=== PATIENT | female | born 1960 | race Two or more races ===

== ENCOUNTER 2019-05-05 08:31 | Emergency (ER) | payer MEDICAID ==
[~2019-05-05] VITALS: Ht 139.7 cm; Wt 59.0 kg
[2019-05-05 08:49] VITALS: BP 124/85
[2019-05-05] MEDS ORDERED: EPINEPHrine HCL 1 MG/1 ML AMP SC ONE (09:30)
[2019-05-05] MEDS ORDERED: diphenhdrAMINE HCL 25 MG CAP PO ONE (09:30)
[2019-05-05] MEDS ORDERED: methylPREDNISolone SOD SUCC 125 MG/2 ML VL IM ONE (09:30)
== END 2019-05-05 10:17 | disposition home or self-care (01) ==
LOC: ER 08:31
DX: T78.40XA Allergy, unspecified, initial encounter (principal); X58.XXXA Exposure to other specified factors, initial encounter
CPT/HCPCS: 96372; 99284; J0171; J2930

== ENCOUNTER → 2020-01-09 | Emergency (ER) | payer MEDICAID ==
[~2020-01-09] VITALS: Ht 147.3 cm; Wt 59.0 kg
[~2020-01-09] MED LIST: IBUPROFEN 800 MG TAB PO ONE
[2020-01-09 14:49] VITALS: BP 151/85
== END | disposition home or self-care (01) ==
LOC: ER 14:24
DX: K08.89 Other specified disorders of teeth and supporting structures (principal); I10 Essential (primary) hypertension; E11.9 Type 2 diabetes mellitus without complications; Z87.891 Personal history of nicotine dependence

== ENCOUNTER → 2023-03-11 | Outpatient (CLI) | payer MEDICAID ==
[~2023-03-11] MED LIST changes: +ALBUTEROL SULF 2.5 MG/0.5ML(0.5%) NEB SOLN ONE; -IBUPROFEN 800 MG TAB PO ONE
== END | disposition home or self-care (01) ==
LOC: RT 08:21
PROVIDERS: ATTEND Internal Medicine Pulmonary Disease
DX: J44.9 Chronic obstructive pulmonary disease, unspecified (principal); R06.00 Dyspnea, unspecified
CPT/HCPCS: 94060; 94727; 94729